=== PATIENT | female | born 1970 | race Caucasian/White ===

== ENCOUNTER 2021-11-25 08:06 | Outpatient (CLI) | payer BC, SELFPAY ==
--- NOTE | 2021-11-25 08:15 | CRLHL7_ITS ---
For Patients: As a result of the Cures Act, medical imaging exams and procedure reports are released immediately into your electronic medical record. You may view this report before your referring provider. If you have questions, please contact your health care provider. BILATERAL DIGITAL SCREENING MAMMOGRAM WITH COMPUTER-AIDED DETECTION CLINICAL HISTORY: Routine screening exam. COMPARISON: None. TECHNIQUE: Digital mammogram in CC and MLO projections including computer-aided detection (CAD). BREAST COMPOSITION: The breasts are heterogeneously dense, which may obscure small masses. FINDINGS: RIGHT Breast: Focal asymmetric density medial RIGHT breast CC view only 5 cm from the nipple. LEFT Breast: No suspicious findings. IMPRESSION: RIGHT breast asymmetry/mass. RECOMMENDATIONS: Additional mammographic views of the RIGHT breast including 3D CC/MLO. RIGHT breast ultrasound may also be required. The [facility] will contact the patient for follow-up. BI-RADS Category 0: Incomplete: Need Additional Imaging Evaluation and/or Prior Mammograms for Comparison A lay language report of this examination will be provided to the patient. Dictated by Pascual Tolentino MD @ 11/25/2021 11:34:27 AM jj/Dictated by: Pascual Tolentino MD @ 11/25/2021 11:34:00 AM (Electronically Signed)
== END 2021-11-25 08:07 | disposition home or self-care (01) ==
LOC: MAMMO 08:07
PROVIDERS: PCP Physician Assistant Medical; Visit Provider Physician Assistant Medical
DX: Z12.31 Encounter for screening mammogram for malignant neoplasm of breast (principal); N63.10 Unspecified lump in the right breast, unspecified quadrant
CPT/HCPCS: 77063; 77067

== ENCOUNTER 2021-11-27 09:43 | Outpatient (CLI) | payer BC, SELFPAY ==
--- NOTE | 2021-11-27 09:45 | CRLHL7_ITS ---
For Patients: As a result of the Cures Act, medical imaging exams and procedure reports are released immediately into your electronic medical record. You may view this report before your referring provider. If you have questions, please contact your health care provider. DIGITAL DIAGNOSTIC RIGHT MAMMOGRAM USING TOMOSYNTHESIS AND COMPUTER-AIDED DETECTION RIGHT BREAST ULTRASOUND CLINICAL HISTORY: RIGHT breast mass/asymmetry. COMPARISON: 11/25/2021. TECHNIQUE: Digital RIGHT mammogram in two projections. Tomosynthesis and CAD utilized. Real-time ultrasound imaging of RIGHT breast with imaging documentation. Scanning was performed by both the technologist and the radiologist. BREAST COMPOSITION: The breasts are heterogeneously dense, which may obscure small masses. FINDINGS: 3D CC/MLO RIGHT breast mammograms submitted. Decreased conspicuity of previously noted asymmetric density. Benign calcifications are present. No architectural distortion. No adenopathy. Targeted sonogram RIGHT breast 12 o`clock 5 cm from the nipple performed. Normal dense fibroglandular tissue noted. No fibrocystic change or solid mass. IMPRESSION: Normal fibroglandular tissue RIGHT breast. No evidence of malignancy. RECOMMENDATIONS: Annual BILATERAL screening mammography. Results and recommendations discussed with the patient. BI-RADS Category 2: Benign A lay language report of this examination will be provided to the patient. Dictated by Pascual Tolentino MD @ 11/27/2021 12:13:37 PM /Dictated by: Pascual Tolentino MD @ 11/27/2021 12:13:00 PM (Electronically Signed)
--- NOTE | 2021-11-27 10:15 | CRLHL7_ITS ---
For Patients: As a result of the Cures Act, medical imaging exams and procedure reports are released immediately into your electronic medical record. You may view this report before your referring provider. If you have questions, please contact your health care provider. PLEASE SEE DIGITAL DIAGNOSTIC RIGHT MAMMOGRAM PERFORMED SAME DAY CRL:drew russell/Dictated by: Pascual Tolentino MD @ 11/27/2021 12:13:00 PM (Electronically Signed)
== END 2021-11-27 09:44 | disposition home or self-care (01) ==
LOC: MAMMO 09:44
PROVIDERS: PCP Physician Assistant Medical; Visit Provider Physician Assistant Medical
DX: N63.10 Unspecified lump in the right breast, unspecified quadrant (principal); R92.8 Other abnormal and inconclusive findings on diagnostic imaging of breast
CPT/HCPCS: 76642; 77065; G0279